=== PATIENT | male | born 1960 | race American Indian/Alaskan Native ===

== ENCOUNTER 2020-10-14 17:15 | Emergency (ER) | payer OTHER ==
[2020-10-14] MEDS ORDERED: KETOROLAC 30 MG/1 ML INJ IM ONE (19:37)
[2020-10-14] MEDS ORDERED: CYCLOBENZAPRINE 10 MG TAB PO ONE (19:37)
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
[2020-10-14 21:41] VITALS: BP 144/82
--- NOTE | 2020-10-18 09:38 | Electrocardiograph Report ---
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
== END 2020-10-14 20:20 | disposition home or self-care (01) ==
LOC: ED 17:15
DX: S16.1XXA Strain of muscle, fascia and tendon at neck level, initial encounter (principal); G44.319 Acute post-traumatic headache, not intractable; I10 Essential (primary) hypertension; E11.9 Type 2 diabetes mellitus without complications; Z79.899 Other long term (current) drug therapy; V49.49XA Driver injured in collision with other motor vehicles in traffic accident, initial encounter; Y92.410 Unspecified street and highway as the place of occurrence of the external cause; Y93.89 Activity, other specified; Y99.8 Other external cause status
CPT/HCPCS: 96372; 99282; J1885; 93005